=== PATIENT | male | born 2000 | race Caucasian/White ===

== ENCOUNTER 2022-07-29 11:02 | Emergency (ER) | payer SELFPAY ==
[2022-07-29 11:04] VITALS: BP 122/80; PULSE 75; RESP 16; TEMP 36.9; O2SAT 97; BMI 22.9
--- NOTE | 2022-07-29 11:17 | W.ED.EAR ---
HPI - Ear Problem General: Chief complaint: Ear Stated complaint: Swollen right ear in the back Time Seen by Provider: 07/29/22 11:17 History of Present Illness: Mr. Bethea is a 21-year-old male without significant past medical history presenting to the emergency department due to HEENT concern. He reports noticing mild itching and subsequently some pain and swelling behind his right ear. Denies known injury or trauma. Has had a few week history of sinus congestion which he relates to allergies. Denies fevers, chills, hearing changes, neck pain or stiffness. Denies similar episodes in the past. No other specific changes in health, exacerbating, or alleviating factors identified. Location: right ear Severity: mild Discharge from ear: no Associated symptoms: Reports no associated symptoms Review of Systems General: Reports: 10 or more systems reviewed and unremarkable except in HPI and below PFSH ED PFSH: Medical History No significant past medical history Surgical History No significant past surgical history Physical Exam Const: COMMON NORMALS: alert GENERAL APPEARANCE: cooperative and well developed HENMT: COMMON NORMALS: normocephalic and atraumatic HEAD & SCALP: normocephalic and atraumatic OTHER: TMs normal bilaterally. Left external ear structures unremarkable. Right ear no tenderness to palpation, erythema, distortion of anatomy on the external ear. Auditory canal unremarkable. There is some mild erythema and swelling to the posterior auricular region. Area does not feel fluctuant and there is no evidence of break in skin or vesicular lesions. Does not feel like hematoma. Does not feel like lymphadenopathy. No pain with palpation of mastoid. Eye: COMMON NORMALS: conjunctivae normal CONJUNCTIVA: Yes conjunctivae normal SCLERA: sclerae normal Neck/C-Spine: COMMON NORMALS: supple GENERAL: Yes trachea midline Resp: COMMON NORMALS: clear to auscultation bilaterally EFFORT & INSPECTION: Yes able to speak in complete sentences AUSCULTATION: clear to auscultation bilaterally Cardio: COMMON NORMALS: regular rate and regular rhythm RATE: regular rate RHYTHM: regular rhythm GI: PALPATION: No Guarding due to palpation present (GI) Extremity: GENERAL: Yes normal exam except as noted and No edema Neuro: COMMON NORMALS: moves all extremities SENSORIUM/ORIENTATION: Yes alert and No Orientation impaired Psych: COMMON NORMALS: mental status grossly normal and Normal thought process present THOUGHT PROCESS: Normal thought process present Course Vital Signs: Vital signs: Vital Signs Temperature 98.4 F 07/29/22 11:04 Pulse Rate 75 07/29/22 11:04 Respiratory Rate 16 07/29/22 11:04 Blood Pressure 122/80 07/29/22 11:04 Pulse Oximetry 97 07/29/22 11:04 Oxygen Delivery Me thod 07/29/22 11:04 MDM - Ear Medical Decision Making 21-year-old male presenting with ear concern. Exam appears to be possible for mild cellulitis. Exam not consistent with lymphadenopathy. There is no evidence of mastoiditis or hematoma. Actual ear structures are unremarkable including TM. Patient is nontoxic in appearance. We will plan to treat for cellulitis with strict return precautions discussed. Medical Records I reviewed the patient's medical records. Lab Data I reviewed the patient's lab results. Discharge Plan Discharge Patient Disposition: Home Clinical Impression: Posterior auricular pain, Superficial skin infection Condition: Stable Discharge Orders: Discharge ED (Routine); Ordered 07/29/22 Ordered By: Yordan Dixon Patient Instructions: Cellulitis (ED) Activity Restrictions/Additional Instructions: Thank you for visiting the emergency department. You were seen and evaluated for swelling and discomfort behind the ear. The exact cause of the symptoms is unclear though may be related to superficial infection. I will prescribe her a course of antibiotics. As discussed you may also use [id number] medications for treatment. Please watch closely for worsening including pain over the mastoid process, fevers, chills, changes in hearing or vision, worsening swelling or redness, or anything else that seems to be concerning to you. Please follow up with a primary care provider. Coding Level of Care Code ED Pinsetter Mechanic Automatic for Jovita Fwd Exam Comprehensive
== END 2022-07-29 12:15 | disposition home or self-care (01) ==
PROVIDERS: Emergency Provider Emergency Medicine
DX: L08.89 Other specified local infections of the skin and subcutaneous tissue (principal); H92.01 Otalgia, right ear
CPT/HCPCS: 99283